=== PATIENT | male | born 1935 | race Caucasian/White ===

== ENCOUNTER 2020-06-19 11:50 | Inpatient (IN) | payer MEDICAID ==
[~2020-06-19] VITALS: Ht 160 cm; Wt 60.8 kg
[2020-06-19 12:53] LABS: BASOPHILS % 0.6 % (0.0-2.0); EOSINOPHILS % 2.4 % (0.0-5.0); HEMOGLOBIN. 16.2 g/dL (14.0-18.0); LYMPHOCYTES % 12.4 % (20.0-50.0); MEAN CORPUSCULAR HEMOGLOBIN 34.3 pg (28.0-32.0); MEAN CORPUSCULAR VOLUME 103.5 fL (80.0-94.0); MEAN PLATELET VOLUME 7.7 fl (7.4-10.4); MONOCYTES % 4.1 % (2.0-8.0); NEUTROPHILS % 80.5 % (40.0-76.0); PLATELET 202 x1000/uL (130-400); RED BLOOD CELL COUNT 4.74 mill/uL (4.7-6.1)
[2020-06-19 13:00] LABS: CHLORIDE 110 mEq/L (98-107)
[2020-06-19] MEDS ORDERED: MORPHINE SULFATE 4 MG/ML CPJ (NOT FOR IM USE) IV PRN (14:15)
[2020-06-19] MEDS: MORPHINE SULFATE 2 MG/ML CPJ (NOT FOR IM USE) IV PRN (14:30)
[2020-06-19] MEDS ORDERED: CLONIDINE 0.1MG TABLET PO PRN (15:00)
[2020-06-19] MEDS ORDERED: ONDANSETRON HCL 4MG/2ML INJ IV PRN (15:00)
[2020-06-19] MEDS ORDERED: DIPHENHYDRAMINE 50MG/ML VIAL IV PRN (15:00)
[2020-06-19] MEDS ORDERED: IPRATROPIUM/ALBUTEROL 0.5-3(2.5)MG/3ML NEB HHN PRN (15:00)
[2020-06-19 18:20] VITALS: BP 143/89
[2020-06-19 20:00] VITALS: BP 141/78
[2020-06-20] VITALS (7 sets, daily range): BP systolic 108–159; BP diastolic 65–96
[2020-06-20] MEDS: MORPHINE SULFATE 2 MG/ML CPJ (NOT FOR IM USE) IV PRN (00:03)
[2020-06-20 07:28] LABS: CHLORIDE 109 mEq/L (98-107)
[2020-06-20 07:31] LABS: BASOPHILS % 0.4 % (0.0-2.0); EOSINOPHILS % 3.5 % (0.0-5.0); HEMATOCRIT. 43.2 % (42.0-52.0); HEMOGLOBIN. 14.5 g/dL (14.0-18.0); LYMPHOCYTES % 17.1 % (20.0-50.0); MEAN CORPUSCULAR HEMOGLOBIN 34.3 pg (28.0-32.0); MEAN CORPUSCULAR VOLUME 102.2 fL (80.0-94.0); MEAN PLATELET VOLUME 7.6 fl (7.4-10.4); MONOCYTES % 6.7 % (2.0-8.0); NEUTROPHILS % 72.3 % (40.0-76.0); PLATELET 182 x1000/uL (130-400); RED BLOOD CELL COUNT 4.23 mill/uL (4.7-6.1); RED CELL DISTRIBUTION WIDTH 13.4 % (11.6-14.6)
[2020-06-20 07:35] LABS: LDL CHOLESTEROL 109 mg/dL (5-100)
[2020-06-20 07:36] LABS: HDL CHOLESTEROL 34 mg/dL (40-59)
[2020-06-20] MEDS ORDERED: INFLUENZA VACCINE 05/PF 0.5 ML VIAL IM ONE (09:00)
[2020-06-20] MEDS ORDERED: PNEUMOCOCCAL 23-VAL P-SAC VAC 0.5 ML IM ONE (09:00)
[2020-06-21] VITALS: BP 144/72
[2020-06-21 04:00] VITALS: BP 140/67
[2020-06-21 08:00] VITALS: BP 138/72
[2020-06-21 12:00] VITALS: BP 163/77
[2020-06-21 16:00] VITALS: BP 139/83
[2020-06-21 20:00] VITALS: BP 128/74
[2020-06-22] VITALS (7 sets, daily range): BP systolic 130–152; BP diastolic 64–83
[2020-06-22 06:27] LABS: BASOPHILS % 0.7 % (0.0-2.0); EOSINOPHILS % 4.7 % (0.0-5.0); HEMATOCRIT. 41.5 % (42.0-52.0); HEMOGLOBIN. 14.2 g/dL (14.0-18.0); LYMPHOCYTES % 22.5 % (20.0-50.0); MEAN CORPUSCULAR HEMOGLOBIN 34.7 pg (28.0-32.0); MEAN CORPUSCULAR VOLUME 101.3 fL (80.0-94.0); MEAN PLATELET VOLUME 7.6 fl (7.4-10.4); MONOCYTES % 8.5 % (2.0-8.0); NEUTROPHILS % 63.6 % (40.0-76.0); PLATELET 205 x1000/uL (130-400); RED BLOOD CELL COUNT 4.09 mill/uL (4.7-6.1); RED CELL DISTRIBUTION WIDTH 13.1 % (11.6-14.6)
[2020-06-23 05:17] VITALS: BP 133/72
[2020-06-23 08:00] VITALS: BP 132/66
[2020-06-23] MEDS: MORPHINE SULFATE 2 MG/ML CPJ (NOT FOR IM USE) IV PRN (09:17)
[2020-06-23 12:00] VITALS: BP 114/64
[2020-06-23] MEDS: ACETAMINOPHEN 325MG TABLET PO PRN (12:32)
[2020-06-23 16:00] VITALS: BP 137/73
[2020-06-23 20:44] VITALS: BP 130/75
[2020-06-24 00:08] VITALS: BP 126/69
[2020-06-24 05:11] VITALS: BP 121/66
[2020-06-24 08:00] VITALS: BP 135/81
[2020-06-24 12:00] VITALS: BP 129/72
[2020-06-24 16:00] VITALS: BP 142/74
[2020-06-24 20:00] VITALS: BP 135/81
[2020-06-24] MEDS ORDERED: TAMSULOSIN HCL 0.4MG SR CAPSULE PO SCH (20:15)
[2020-06-25] VITALS: BP 130/76
[2020-06-25 04:00] VITALS: BP 150/97
[2020-06-25 06:49] LABS: BASOPHILS % 0.6 % (0.0-2.0); EOSINOPHILS % 3.5 % (0.0-5.0); HEMATOCRIT. 45.7 % (42.0-52.0); HEMOGLOBIN. 15.4 g/dL (14.0-18.0); LYMPHOCYTES % 23.9 % (20.0-50.0); MEAN CORPUSCULAR HEMOGLOBIN 34.3 pg (28.0-32.0); MEAN CORPUSCULAR VOLUME 101.7 fL (80.0-94.0); MONOCYTES % 7.9 % (2.0-8.0); NEUTROPHILS % 64.1 % (40.0-76.0); PLATELET 211 x1000/uL (130-400); RED BLOOD CELL COUNT 4.49 mill/uL (4.7-6.1); RED CELL DISTRIBUTION WIDTH 13.5 % (11.6-14.6)
[2020-06-25 08:00] VITALS: BP 121/74
[2020-06-25] MEDS: DOCUSATE SODIUM 100MG CAPSULE PO SCH ×2 (10:17→16:32)
[2020-06-25 12:00] VITALS: BP 134/70
[2020-06-25] MEDS: ACETAMINOPHEN 325MG TABLET PO PRN (12:28)
[2020-06-25 16:00] VITALS: BP 118/69
[2020-06-25] MEDS: SODIUM CHLORIDE 0.9% 1,000 ML IV SCH (16:33)
[2020-06-25 19:13] LABS: CLARITY URINE CLEAR (CLEAR); COLOR URINE YELLOW (YELLOW); KETONES URINE NEGATIVE (NEGATIVE); LEUKOCYTE ESTERASE URINE NEGATIVE (NEGATIVE); NITRITE URINE NEGATIVE (NEGATIVE); OCCULT BLOOD URINE NEGATIVE (NEGATIVE); PH URINE 5.5 (4.5-8.0); PROTEIN URINE 1+ (NEGATIVE); UROBILINOGEN URINE 0.2 E.U./dL (0.2-1.0)
[2020-06-25 20:00] VITALS: BP 121/73
[2020-06-25] MEDS: POLYETHYLENE GLYCOL 3350 (17GM) 1 DOSE PACK PO SCH (20:49)
[2020-06-26] VITALS: BP 136/50
[2020-06-26] MEDS: SODIUM CHLORIDE 0.9% 1,000 ML IV SCH ×2 (01:46→16:24)
[2020-06-26 04:00] VITALS: BP 120/65
[2020-06-26 07:36] LABS: CHLORIDE 103 mEq/L (98-107)
[2020-06-26 07:42] LABS: PHOSPHORUS 2.6 mg/dL (2.5-4.9)
[2020-06-26 07:45] LABS: CREATINE KINASE 100 IU/L (39-308)
[2020-06-26 08:00] VITALS: BP 128/87
[2020-06-26] MEDS: DOCUSATE SODIUM 100MG CAPSULE PO SCH ×2 (09:00→16:18)
[2020-06-26 10:02] LABS: BASOPHILS % 0.8 % (0.0-2.0); HEMATOCRIT. 42.2 % (42.0-52.0); HEMOGLOBIN. 14.2 g/dL (14.0-18.0); LYMPHOCYTES % 22.6 % (20.0-50.0); MEAN PLATELET VOLUME 6.4 fl (7.4-10.4); MONOCYTES % 7.2 % (2.0-8.0); NEUTROPHILS % 66.4 % (40.0-76.0); PLATELET 210 x1000/uL (130-400); RED BLOOD CELL COUNT 4.18 mill/uL (4.7-6.1); RED CELL DISTRIBUTION WIDTH 13.2 % (11.6-14.6)
[2020-06-26 10:03] LABS: MEAN CORPUSCULAR VOLUME 100.7 fL (80.0-94.0)
[2020-06-26 12:00] VITALS: BP 133/70
[2020-06-26 16:00] VITALS: BP 121/72
[2020-06-26] MEDS: LACTULOSE 20G/30ML UDC PO SCH ×3 (16:18→21:00)
[2020-06-26 19:01] LABS: VITAMIN B12 SERUM 698 pg/mL (211-911)
[2020-06-26 20:00] VITALS: BP 134/82
[2020-06-26] MEDS: POLYETHYLENE GLYCOL 3350 (17GM) 1 DOSE PACK PO SCH (21:00)
[2020-06-27] VITALS: BP 136/69
[2020-06-27 04:00] VITALS: BP 131/75
[2020-06-27 07:36] LABS: BASOPHILS % 0.5 % (0.0-2.0); EOSINOPHILS % 3.3 % (0.0-5.0); HEMOGLOBIN. 13.8 g/dL (14.0-18.0); LYMPHOCYTES % 22.7 % (20.0-50.0); MEAN CORPUSCULAR HEMOGLOBIN 34.2 pg (28.0-32.0); MEAN CORPUSCULAR VOLUME 101.4 fL (80.0-94.0); MEAN PLATELET VOLUME 6.7 fl (7.4-10.4); MONOCYTES % 7.5 % (2.0-8.0); PLATELET 219 x1000/uL (130-400); RED BLOOD CELL COUNT 4.04 mill/uL (4.7-6.1); RED CELL DISTRIBUTION WIDTH 13.1 % (11.6-14.6)
[2020-06-27 07:52] LABS: PHOSPHORUS 3.1 mg/dL (2.5-4.9)
[2020-06-27 08:00] VITALS: BP 129/62
[2020-06-27] MEDS: DOCUSATE SODIUM 100MG CAPSULE PO SCH ×2 (08:59→16:56)
[2020-06-27 12:00] VITALS: BP 124/69
[2020-06-27] MEDS: SODIUM CHLORIDE 0.9% 1,000 ML IV SCH (15:08)
[2020-06-27 15:47] VITALS: BP 125/69
[2020-06-27 16:00] VITALS: BP 124/71
[2020-07-04 17:06] LABS: 25-HYDROXY VITAMIN D3 32 ng/mL (.)
== END 2020-06-27 18:52 | DRG 144 ==
LOC: ER 12:04 → 6EST 14:32 → ENRESERV 16:24
PROVIDERS: ADMIT Internal Medicine; ATTEND Internal Medicine
DX: S22.32XA Fracture of one rib, left side, initial encounter for closed fracture (principal); S14.109A Unspecified injury at unspecified level of cervical spinal cord, initial encounter; S22.31XA Fracture of one rib, right side, initial encounter for closed fracture; W05.0XXA Fall from non-moving wheelchair, initial encounter; M48.061 Spinal stenosis, lumbar region without neurogenic claudication; I16.0 Hypertensive urgency; M47.812 Spondylosis without myelopathy or radiculopathy, cervical region; N40.0 Benign prostatic hyperplasia without lower urinary tract symptoms; E78.00 Pure hypercholesterolemia, unspecified; J44.9 Chronic obstructive pulmonary disease, unspecified; M48.02 Spinal stenosis, cervical region; E43 Unspecified severe protein-calorie malnutrition; E86.1 Hypovolemia; G82.50 Quadriplegia, unspecified; K80.20 Calculus of gallbladder without cholecystitis without obstruction; Z20.822 Contact with and (suspected) exposure to COVID-19; I12.9 Hypertensive chronic kidney disease with stage 1 through stage 4 chronic kidney disease, or unspecified chronic kidney disease; N18.2 Chronic kidney disease, stage 2 (mild); Z99.3 Dependence on wheelchair; Z82.49 Family history of ischemic heart disease and other diseases of the circulatory system; I69.354 Hemiplegia and hemiparesis following cerebral infarction affecting left non-dominant side; Z68.23 Body mass index [BMI] 23.0-23.9, adult; Z82.5 Family history of asthma and other chronic lower respiratory diseases; Y93.89 Activity, other specified; Y92.89 Other specified places as the place of occurrence of the external cause; Y99.8 Other external cause status; N17.0 Acute kidney failure with tubular necrosis
CPT/HCPCS: 36415; 71250; 72141; 72146; 72148; 74176; 76770; 80048; 80053; 80061; 80076; 81003; 82306; 82550; 82607; 83735; 84100; 84443; 84484; 85025; 87426; 90686; 90732; 92523; 92610; 93005; 93970; 97110; 97162; 97166; 97530; 99285; J2270; J7030